=== PATIENT | female | born 1995 | race Caucasian/White ===

== ENCOUNTER 2016-05-08 20:54 | Emergency (ER) | payer SELFPAY ==
[~2016-05-08] VITALS: Ht 170.2 cm; Wt 72.7 kg
[2016-05-08 21:51] LABS: APPEARANCE,URINE CLOUDY (CLEAR); GLUCOSE, URINE (UA) NEGATIVE (NEGATIVE); KETONES,URINE NEGATIVE (NEGATIVE); LEUKOCYTE ESTERASE ,URINE NEGATIVE (NEGATIVE); OCCULT BLOOD,URINE NEGATIVE (NEGATIVE); PROTEIN,URINE NEGATIVE (NEGATIVE)
[2016-05-08 22:21] LABS: RBC,URINE None Seen /HPF (0-2); SQUAMOUS EPITHELIAL CELL,UR Few /LPF (None Seen); WBC,URINE None Seen /HPF (0-5)
[2016-05-08 23:11] VITALS: BP 114/62
== END 2016-05-08 23:16 | disposition home or self-care (01) ==
LOC: EMS 20:55
DX: J06.9 Acute upper respiratory infection, unspecified (principal); H92.02 Otalgia, left ear
CPT/HCPCS: 99284